=== PATIENT | male | born 1990 | race Caucasian/White ===

== ENCOUNTER 2023-12-16 13:13 | Outpatient (AMB) | payer OTHER, SELFPAY ==
[2023-12-16 13:43] VITALS: BP 110/80; PULSE 84; TEMP 36.5; O2SAT 97; BMI 28.6
--- NOTE | 2023-12-16 13:43 | MHC.OFFWIV ---
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 Patient is reporting bruise on the skin of the shaft of the penis. He noticed it 2 days ago after sexual activity. Patient is also reporting a rash on the right arm. Similar rash was there on the penis. Heterosexual, single partner in a committed relationship. Does not use protection. PFSH Social History Patient Tobacco Use Status: Never used Tobacco Physical Exam Vital Signs: Last Vital Signs Temp 97.7 F 12/16/23 13:43 Pulse 84 12/16/23 13:43 BP 110/80 12/16/23 13:43 Pulse Ox 97 12/16/23 13:43 Oxygen Delivery Method Room Air 12/16/23 13:43 BMI result Body Mass Index 28.6 Other: Genitalia: Penis: Mild bruising on the side of the shaft. No blisters or vesicles. Skin Other: Erythematous rash, vesicular lesions scattered on the right arm. Assessment & Plan Assessment & Plan (1) Rash: Code(s): R21 - Rash and other nonspecific skin eruption Plan: Most likely poison dermatitis in the arm. Prednisone to be prescribed. Bruising in the penis probably reflects small trauma. Reassurance Coding Level of Care Code Est Pt Level 3 (66230) Diagnoses Rash R21
== END 2023-12-16 14:26 | disposition home or self-care (01) ==
PROVIDERS: PCP Internal Medicine; Visit Provider Internal Medicine
DX: R21 Rash and other nonspecific skin eruption (principal)
CPT/HCPCS: 99213